=== PATIENT | female | born 1990 | race Caucasian/White ===

== ENCOUNTER 2017-01-03 07:40 | Inpatient (IN) | payer MEDICAID ==
[~2017-01-03] VITALS: Ht 160 cm; Wt 59.9 kg
--- NOTE | ~2017-01-03 | FD ---
ADMIT: 01/03/2017 RM/LOC: 228 [facility] MR#: [id number] [address] [address] [facility] [address] [address] [address] Final Diagnosis SEX: F AGE: 26 : 1990 ADMISSION DATE: 01/03/2017 DISCHARGE DATE: 01/05/2017 FINAL DIAGNOSIS: 1. Term intrauterine at 39 weeks 5 days. 2. History of intrauterine growth restriction, resolved. PROCEDURE: Spontaneous vaginal delivery. Mica German MD/ kitty JOB #: [id number] CC: Emily Rogers MD, Attending Physician FAMILY PHYSICIAN, Family Physician
[2017-01-06] MEDS ORDERED: TYLENOL DPS325 MG PO (09:42)
[2017-01-06] MEDS ORDERED: PRENATAL VIT1 TAB PO (09:42)
[2017-01-06] MEDS ORDERED: FEOSOL-DPS325 MG PO (09:42)
[2017-01-06] MEDS ORDERED: NIPPLECREAM TP (09:43)
[2017-01-06] MEDS ORDERED: MOTRIN-DPS800 MG PO (09:43)
[2017-01-06] MEDS ORDERED: COLACE-DPS100 MG PO (09:43)
[2017-01-06] MEDS ORDERED: TYLENOL EXTRA500 MG PO (09:43)
[2017-01-06] MEDS ORDERED: LAN-O-SOOTHE7 GM TP (09:44)
[2017-01-06] MEDS ORDERED: TUCKS1 EACH PR (09:44)
[2017-01-06] MEDS ORDERED: DERMOPLAST SPRA56 GM PR (09:44)
--- NOTE | 2017-01-22 09:34 | OR ---
ADMIT: 01/03/2017 RM/LOC: 228 [facility] MR#: [id number] [address] [address] [facility] [address] [address] [address] Operative/Delivery Room Report SEX: F AGE: 26 : 1990 SURGERY DATE: 01/03/2017 SURGEON: Emily Rogers MD PROCEDURE: Removal of epidural catheter. DESCRIPTION OF PROCEDURE: This is a 26-year-old female, 3, now para 3, who delivered a viable female infant, with an epidural in place. Following delivery, she was placed in the sitting position. Epidural catheter was removed without any difficulty. The tip was noted to be intact. The patient tolerated the procedure well. She did recover in her Labor and Delivery suite with her . Emily Rogers MD/ bridger JOB #: [id number] CC: Emily Rogers, Attending Physician FAMILY PHYSICIAN, Family Physician
--- NOTE | 2017-01-22 09:34 | OR ---
ADMIT: 01/03/2017 RM/LOC: 228 [facility] MR#: [id number] [id number] [place], [place] [address] [facility] [address] [address] Operative/Delivery Room Report SEX: F AGE: 26 : 1990 SURGERY DATE: 01/03/2017 SURGEON: Emily Rogers MD PREOPERATIVE DIAGNOSES: 1. Intrauterine at 39-5/7th weeks' gestation. 2. Active labor. 3. Group B Streptococcus negative. POSTOPERATIVE DIAGNOSES: 1. Intrauterine at 39-5/7th weeks' gestation. 2. Active labor. 3. Group B Streptococcus negative. 4. Delivery of a viable female infant at 2316 hours, weighing 7 pounds 5 ounces with scores of 9 at 1 minute, 9 at 5 minutes. PROCEDURE: Spontaneous vaginal delivery. ANESTHESIA: Epidural. COMPLICATIONS: None. ESTIMATED BLOOD LOSS: 300 mL. IV FLUIDS: Crystalloid. INDICATIONS: This is a 26-year-old female, 3, para 2, who presented to the [facility] with an intrauterine at 39-5/7th weeks' gestation for induction of labor. Her was complicated by history of delivery at 36 weeks, anxiety, and intrauterine growth restriction with this that resolved. She was seen and followed by Maternal- Medicine and MSN did recommend delivery by 40 weeks. She was started on Pitocin and a Medina bulb was placed, assisted rupture of membranes was performed when she was 5 to 6 cm dilated. She did request and receive an epidural for pain control. She progressed to be complete in a satisfactory fashion at which time, she was allowed to push bringing the 's vertex to the perineum. PROCEDURE IN DETAIL: The patient was noted to be complete. She was placed in the dorsal lithotomy position and prepped and draped in usual sterile fashion. She was asked to push and delivered the 's vertex in the right occiput anterior position over the midline. Nuchal cord was checked, none was noted. The anterior shoulder delivered easily followed by the posterior shoulder and the remainder of the infant. The did have spontaneous cry and movement of all 4 extremities. She was passed to the mother's abdomen where nursing personnel were in attendance. After 1 minute, the cord was clamped x2 and cut ADMIT: 01/03/2017 RM/LOC: 228 [facility] MR#: [id number] [address] [address] [facility] [address] [place] [address] Operative/Delivery Room Report SEX: F AGE: 26 : 1990 by the father. Cord blood was obtained. Twenty units of Pitocin were infused with IV fluids to help firm the uterus. The placenta delivered intact spontaneously. At this time, the uterus was not explored. Examination of the cervix and vaginal vault did not reveal any lacerations. Examination of the perineum revealed a few small abrasions that were all hemostatic and did not need repair. Subsequent uterine massage revealed increased bleeding, therefore bimanual massage was performed and the uterus was explored at this time. I did remove a few small fragments of membranes and the uterus did contract down nicely. I did give her 0.2 mg of Methergine IM to help the uterus contract in addition to the Pitocin. The patient tolerated the procedure well. Sponge, needle, and instrument counts were correct. The patient did recover in her Labor and Delivery suite with her infant. Emily Rogers MD/ bridger JOB #: [id number] CC: Emily Rogers, Attending Physician NO FAMILY PHYSICIAN, Family Physician
--- NOTE | 2017-01-22 09:34 | HP ---
ADMIT: 01/03/2017 RM/LOC: 228 [facility] MR#: [id number] [id number] [place], [place] [address] [place] [address] [place] [id number] History and Physical SEX: F AGE: 26 : 1990 DATE OF SERVICE: CHIEF COMPLAINT: Induction of labor. HISTORY OF PRESENT ILLNESS: This is a 26-year-old female, 3, para 2-0- 0-2, who [facility] with an intrauterine at 39 and 5/7th weeks' gestation with estimated date of confinement of 01/05/2017. Her estimated confinement is based of last menstrual period and consistent with a first trimester ultrasound. Her has been complicated by history of delivery at 36 weeks, intrauterine growth restriction, and anxiety. She was seen, evaluated, and followed by Maternal Medicine. Her most recent ultrasound did demonstrate adequate growth. She has had reassuring antepartum testing. On ultrasound, the placenta appeared to be anterior with a succenturiate lobe versus bilobed with a velamentous cord insertion. An M did recommend delivery by 40 weeks. At the time of initial evaluation, she was miguel a irregularly, and 2 cm dilated per nursing staff. LABORATORY DATA: Blood type is O positive. Antibody screen negative. HIV negative. Hepatitis B surface antigen negative. RPR nonreactive. Rubella negative. Initial chlamydia test was positive, gonorrhea negative. Repeat chlamydia tests negative. Quad screen was normal. Diabetic screen 116. Group B strep is negative. PAST MEDICAL HISTORY: Significant for anxiety. She tried medications, but did not likely use. She has otherwise declined counseling. She denies hypertension, diabetes, asthma, kidney or thyroid disease. PAST SURGICAL HISTORY: Appendectomy. SOCIAL HISTORY: She is not . The father of the baby is involved. She denies tobacco, alcohol, or drug use. ALLERGIES: SHE HAS NO KNOWN DRUG ALLERGIES. MEDICATIONS: 1. vitamins. 2. Ferrous sulfate daily. 3. Tylenol as needed. PHYSICAL EXAMINATION: VITAL SIGNS: She is afebrile. Her blood pressure is 103/70, pulse is 120. GENERAL: She is an anxious, but not in any acute distress. HEENT: Head is normocephalic and atraumatic. Pupils are equal, round, react to light and accommodation. Extraocular muscles are intact. NECK: Supple. HEART: Regular rate and rhythm. LUNGS: Clear bilaterally. ABDOMEN: Soft, nontender, and nondistended. Gravid. ADMIT: 01/03/2017 RM/LOC: 228 [facility] MR#: [id number] [address] [address] [facility] [place] [address] History and Physical SEX: F AGE: 26 : 1990 EXTREMITIES: Nontender. heart tones are 140s baseline, moderate variability is present, 15 x 15 accelerations present, decelerations are absent. Uterine contractions are irregular. Her cervix is 2 cm, 50%, -2 station. Fetus is vertex. Estimated weight 6.5 to 7 pounds. IMPRESSION: 1. This is a 26-year-old female, 3, para 2, with an intrauterine at 39 and 5/7th weeks' gestation. 2. Group B streptococcus negative. 3. History of IUGR during this . 4. Anxiety. PLAN: At this time, we do plan to start Pitocin. We will place a Medina bulb, use to assist rupture of membranes as needed and anticipate a spontaneous vaginal delivery. Emily Rogers MD/ bridger JOB #: [id number] CC: Emily Rogers, Attending Physician FAMILY PHYSICIAN, Family Physician
== END 2017-01-05 11:55 | disposition home or self-care (01) | DRG 774 ==
LOC: 2LDRP 07:40 → BC 07:40 → 2LDRP 08:29 → BC 01-05 08:00 → 2LDRP 01-05 11:55
PROVIDERS: ADMIT Obstetrics & Gynecology
PROC: 10E0XZZ Delivery of Products of Conception, External Approach (ICD-10-PCS; principal; 2017-01-03)
DX: O99.284 Endocrine, nutritional and metabolic diseases complicating childbirth (principal); O72.2 Delayed and secondary postpartum hemorrhage; E87.6 Hypokalemia; O99.02 Anemia complicating childbirth; D64.9 Anemia, unspecified; Z3A.39 39 weeks gestation of pregnancy; Z37.0 Single live birth